=== PATIENT | female | born 1970 | race Hispanic/Latino ===

== ENCOUNTER 2024-03-25 11:42 | Emergency (ER) | payer OTHER ==
[~2024-03-25] VITALS: Ht 165.1 cm; Wt 80.4 kg
[2024-03-25 11:45] VITALS: PULSE 84; RESP 16; TEMP 97.9
[2024-03-25] MEDS: ACETAMINOPHEN 325 MG TAB PO ONE (12:42)
[2024-03-25] MEDS ORDERED: CEPHALEXIN500 MG PO (13:35)
[2024-03-25 13:46] VITALS: BP 109/65; PULSE 76; RESP 16; TEMP 98; O2SAT 98
== END 2024-03-25 13:45 | disposition home or self-care (01) ==
LOC: FSED 11:45
DX: M54.50 Low back pain, unspecified (principal); N30.91 Cystitis, unspecified with hematuria; N28.1 Cyst of kidney, acquired; I10 Essential (primary) hypertension; E78.5 Hyperlipidemia, unspecified; E03.9 Hypothyroidism, unspecified; F41.9 Anxiety disorder, unspecified
CPT/HCPCS: 74176; 80053; 81003; 85025; 99283